=== PATIENT | male | born 1975 | race Two or more races ===

== ENCOUNTER 2020-09-16 12:14 | Emergency (ER) | payer SELFPAY ==
[~2020-09-16] VITALS: Ht 170.2 cm; Wt 105.6 kg
[2020-09-16] MEDS ORDERED: MORPHINE SULFATE 4 MG/ML, 1ML ONE (12:28)
[2020-09-16] MEDS ORDERED: ONDANSETRON 2MG/ML, 2ML ONE (12:28)
[2020-09-16] MEDS ORDERED: MORPHINE SULFATE 4 MG/ML, 1ML IVPush PRN (12:30)
[2020-09-16] MEDS ORDERED: SODIUM CHLORIDE FLUSH 10ML SYR IVF ONE (12:30)
[2020-09-16] MEDS ORDERED: ONDANSETRON 2MG/ML, 2ML IVPush ONE (12:30)
--- NOTE | 2020-09-16 12:30 | NUR ---
IV PLACED AND PT MEDICATED PER ORDERS. XR TO BE DONE AT BS.
--- NOTE | 2020-09-16 12:36 | NUR ---
ERP AT BS.
[2020-09-16] MEDS ORDERED: PROPOFOL 10 MG/ML, 20ML ONE (12:40)
--- NOTE | 2020-09-16 12:45 | NUR ---
PLAN FOR L SHOULDER REDUCTION WITH MODERATE SEDATION RV'WD WITH PT AND , THEY VERBALIZE UNDERSTANDING. ERP AND ER PA IN ROOM.
[2020-09-16 12:50] VITALS: BP 127/80
--- NOTE | 2020-09-16 12:53 | NUR ---
L SHOULDER SUCCESSFULLY REDUCED BY ER PA. PT TOLERATED WELL. SEE PROCEDURAL SEDATION FLOWSHEET FOR DETAILS. Addendum: 09/16/20 at 1401 by HBENSON L SHOULDER IMMOBILIZER APPLIED BY HEALTH INFORMATION PROVIDER WITH ERP AND RN.
--- NOTE | 2020-09-16 12:57 | NUR ---
PT AWAKE, ANSWERING QUESTIONS. REMAINS ON ALL MONITORING.
[2020-09-16] MEDS ORDERED: PROPOFOL 10 MG/ML, 20ML IVPush ONE (13:00)
--- NOTE | 2020-09-16 13:06 | NUR ---
POST REDUCTION XR DONE AT BS. ERP AT BS FOR RECHECK.
--- NOTE | 2020-09-16 13:40 | NUR ---
TREMAYNE WHITTEN AT FOR RECHECK.
--- NOTE | 2020-09-16 14:00 | NUR ---
DAUGHTER AND AT BS. D/C INSTRUCTIONS, MEDS & F/U APPT RV'WD WITH PT, DAUGHTER AND . L SHOULDER IMMOBILIZER IN PLACE, CMS TO LUE INTACT. INSTRUCTED PT ON SHOULDER PRECAUTIONS. PT AMBULATED OUT OF ED WITH FAMILY.
== END 2020-09-16 13:59 | disposition home or self-care (01) ==
LOC: ED 13:00
DX: S43.005A Unspecified dislocation of left shoulder joint, initial encounter (principal); W00.0XXA Fall on same level due to ice and snow, initial encounter; Y93.89 Activity, other specified; Y92.89 Other specified places as the place of occurrence of the external cause; Y99.8 Other external cause status
CPT/HCPCS: 23650; 73030; 96374; 99285; J2270; J2405; J2704